=== PATIENT | female | born 1950 | race Caucasian/White ===

== ENCOUNTER 2022-01-18 18:45 | Inpatient (IN) | payer BC ==
[~2022-01-18] VITALS: Ht 170.2 cm; Wt 79.4 kg
--- NOTE | 2022-01-18 18:56 | NUR ---
PT IS IN ROOM #2A. DR MARKS EVALUATED THE PT.
[2022-01-18] MEDS ORDERED: DIGO125T PO (19:07)
[2022-01-18] MEDS ORDERED: INHALER (19:07)
[2022-01-18] MEDS ORDERED: CARV20CP PO (19:07)
--- NOTE | 2022-01-18 19:26 | NUR ---
Pt out of ER for CT.
[2022-01-18] MEDS ORDERED: IV NORMAL SALINE 1000 ML BAG IV ONE (19:30)
--- NOTE | 2022-01-18 19:40 | NUR ---
Pt back to ER from CT.
[2022-01-18 20:24] LABS: HEMATOCRIT 51.7 % (31.2-41.9); MEAN CORPUSCULAR HEMOGLOBIN 32.3 uug (24.7-32.8); MEAN CORPUSCULAR VOLUME 96.2 fL (75.5-95.3); PLATELET COUNT (AUTO) 195 K/uL (179-408)
[2022-01-18 20:34] LABS: CARBON DIOXIDE 25 mmol/L (21-32); CHLORIDE 100 mmol/L (98-107); CREATININE 0.9 mg/dL (0.6-1.3); GLUCOSE 143 mg/dL (74-106); POTASSIUM 4.8 mmol/L (3.5-5.1); UREA NITROGEN, BLOOD 9 mg/dL (7-18)
[2022-01-18 20:42] LABS: ALANINE AMINOTRANSFERASE 30 U/L (14-59); ALKALINE PHOSPHATASE 115 U/L (50-136); ASPARTATE AMINOTRANSFERASE 44 U/L (15-37); BILIRUBIN,DIRECT 0.2 mg/dL (0.0-0.2); BILIRUBIN,TOTAL 1.1 mg/dL (0.2-1.0); TOTAL PROTEIN, SERUM 7.2 g/dL (6.4-8.2)
[2022-01-18 20:48] LABS: THYROID STIMULATING HORMONE 0.746 mIU/mL (0.358-3.740)
[2022-01-18] MEDS ORDERED: HYDROCODONE/APAP 5-325MG TABLET ONE (22:54)
[2022-01-18] MEDS ORDERED: HYDROCODONE/APAP 5-325MG TABLET PO ONE (23:00)
--- NOTE | 2022-01-18 23:02 | NUR ---
Xray at bedside.
[2022-01-18] MEDS ORDERED: MUPIROCIN 2% OINT 22 GM TUBE ONE (23:34)
--- NOTE | 2022-01-18 23:55 | NUR ---
Called [facility] to page Rosalinda Jane NP.
--- NOTE | 2022-01-19 01:14 | NUR ---
Dr. Simpson on panel call with Dr. Snaju Power. Patient accepted for admission to [facility], diagnosis: syncope.
[2022-01-19] MEDS ORDERED: IV NS 1000 ML 1,000 ML IV PRN (02:00)
[2022-01-19] MEDS ORDERED: ACETAMINOPHEN 325 MG TABLET PO PRN (02:00)
[2022-01-19] MEDS ORDERED: ONDANSETRON 4 MG/2 ML VIAL IV PRN (02:00)
[2022-01-19] MEDS ORDERED: MAGNESIUM HYDROXIDE 30 ML LIQUID UDC PO PRN (02:00)
[2022-01-19] MEDS ORDERED: REMEDY ESSENTIAL ZINC PASTE 113 GM TP PRN (02:00)
--- NOTE | 2022-01-19 07:27 | NUR ---
Received report from Alonzo Loaiza pt. will be admitted as telemetry pt. with pending bed assignment.
[2022-01-19] MEDS ORDERED: KETOROLAC TROMETHAMINE 15 MG INJ IVP ONE (07:30)
--- NOTE | 2022-01-19 07:44 | NUR ---
Pt's with c/of pain medicated as ordered. SBP of 182/92, HR of 75. rr 14. Patient restless and slightly agitated with sbp cuff pressure during sbp reading. Addendum: 01/19/22 at [address] Hernandez at bedside report given and orders for hydralzine 10mg IVP X one dose received and implemented.
[2022-01-19] MEDS ORDERED: hydrALAZINE HCL 20 MG/1 ML VIAL IV PRN ×2 (08:00→09:15)
[2022-01-19] MEDS: PANTOPRAZOLE SODIUM 40 MG TABLET.DR PO SCH (09:00)
[2022-01-19] MEDS ORDERED: ALBUTEROL SULFATE 8 GM HFA.AER.AD IH PRN (09:15)
[2022-01-19] MEDS: FLUTICASONE/VILANTEROL 1 EACH BLST.W.DEV INH SCH (09:15)
--- NOTE | 2022-01-19 09:25 | NUR ---
Report given to rachael herrmann all questions answer pt. will be taken up to room 310 via gurney. vitals stable sbp of 148/80 rr 14, saturation 98% on RA. hr of 89.
[2022-01-19] MEDS ORDERED: ALBUTEROL SULFATE 2.5 MG/3 ML NEBU NEB PRN (09:30)
[2022-01-19] MEDS ORDERED: FLUT1BLS6 INH (09:31)
[2022-01-19] MEDS ORDERED: CARVEDILOL 6.25 MG TABLET PO SCH (10:00)
[2022-01-19] MEDS ORDERED: DIGOXIN 125 MCG TABLET PO ONE (10:00)
[2022-01-19 10:56] VITALS: BP 192/88
[2022-01-19] MEDS: CARVEDILOL 6.25 MG TABLET PO SCH ×2 (11:31→17:00)
[2022-01-19 13:00] VITALS: BP 155/75
--- NOTE | 2022-01-19 13:33 | NUR ---
Admitted a 71 yrs old patient from ER S/p fall at home and called 911 transferred to ER via ambulance , patient is alert and oriented x3 very anxiety and nervous refused to be cooperative with nurses.refused most of medication .skin checked done no skin breakdown noted ,patient was lives at home alone refused to answer some of Admission question .patient refused PT and state that she unable to walk at this time.
--- NOTE | 2022-01-19 14:27 | NUR ---
patient has money credit card and check book in her purse she insisted to keep with her.
[2022-01-19 16:13] VITALS: BP 153/67
[2022-01-19] MEDS: DOCUSATE SODIUM 100 MG CAPSULE PO SCH (17:00)
--- NOTE | 2022-01-19 19:30 | NUR ---
Received pt awake, alert and oriented x4. Pt in no acute distress. Iv intact. Pt insisted to have her belongings like cards in her room. Safety and comfort provided. Will continue to monitor.
[2022-01-19 20:06] VITALS: BP 145/66
[2022-01-19] MEDS: HYDROCODONE/APAP 5-325MG TABLET PO PRN (21:08)
--- NOTE | 2022-01-19 22:08 | NUR ---
At 2108H pt was given Universal 5-325mg 1 tablet prn for pain. Pt tolerated it well. After an hour pt stated she felt better. Will continue to monitor.
[2022-01-19] MEDS: IV NS 1000 ML 1,000 ML IV PRN (22:39)
[2022-01-20] VITALS (7 sets, daily range): BP systolic 123–171; BP diastolic 50–89
[2022-01-20] MEDS: PANTOPRAZOLE SODIUM 40 MG TABLET.DR PO SCH (06:11)
--- NOTE | 2022-01-20 06:25 | NUR ---
Pt slept intermittently. Pt in no acute distress. Iv intact.. Prescribed medication given and pt tolerated it well.Pt vital signs within normal limit. Pt afebrile.Pt wants to talk to family independence case manager. Pt wants to go home withsupplies that she will need. Safety and comfort provided. All needs are met. Will endorse to incoming nurse for continuity of care.
[2022-01-20 06:47] LABS: HEMATOCRIT 46.2 % (31.2-41.9); MEAN CORPUSCULAR HEMOGLOBIN 32.6 uug (24.7-32.8); MEAN CORPUSCULAR VOLUME 96.5 fL (75.5-95.3); PLATELET COUNT (AUTO) 163 K/uL (179-408)
--- NOTE | 2022-01-20 07:00 | NUR ---
Received pt. AAOx4. vitals stable on 2L NC with saturation of 98%. Cardiac-barron on controlled A-fib rate in the low 100's. Iv line patent. Will continue to monitor.
[2022-01-20 07:03] LABS: BILIRUBIN,TOTAL 1.4 mg/dL (0.2-1.0); CREATININE 0.9 mg/dL (0.6-1.3); MAGNESIUM 2.1 mg/dL (1.8-2.4); PHOSPHOROUS 3.2 mg/dL (2.5-4.9); POTASSIUM 4.3 mmol/L (3.5-5.1); TOTAL PROTEIN, SERUM 6.2 g/dL (6.4-8.2)
[2022-01-20 07:33] LABS: DIGOXIN 0.4 ng/mL (0.9-2.0)
[2022-01-20] MEDS: IV NS 1000 ML 1,000 ML IV PRN (07:55)
[2022-01-20] MEDS ORDERED: CARVEDILOL 6.25 MG TABLET PO SCH (08:00)
[2022-01-20] MEDS ORDERED: Medication Not On Formulary EA (Carvedilol Phosphate (Coreg Cr) 1 CAP) PO SCH (09:00)
[2022-01-20] MEDS: FLUTICASONE/VILANTEROL 1 EACH BLST.W.DEV INH SCH (09:54)
[2022-01-20] MEDS: DIGOXIN 125 MCG TABLET PO SCH (09:55)
[2022-01-20] MEDS: DOCUSATE SODIUM 100 MG CAPSULE PO SCH ×2 (09:55→17:22)
[2022-01-20] MEDS: CARVEDILOL 12.5 MG TABLET PO SCH ×2 (09:55→17:22)
[2022-01-20] MEDS: NICOTINE 21 MG/24HR PATCH TD SCH (09:55)
[2022-01-20] MEDS: MIRALAX 17 GM POWD.PACK PO SCH (09:55)
--- NOTE | 2022-01-20 10:22 | NUR ---
Social Work Clinical Note: Social Service consult requested for pt. 's request for life alert. Pt. is a 71-year-old female who was admitted to the medical floor on 01/19/2022 due to syncope. Upon social service consult, pt. is alert and oriented x4. Pt. presents with an anxious mood and congruent affect. Pt. appeared to have tremor like movements. Pt. presented unkempt and provided appropriate eye contact. SW explored pt.s living situation. Pt. stated she lives alone at [address] [place] [address]. SW explored pt.s social support. Pt. stated she does not have any family or friends. Pt. stated she hires people to take out her trash and complete household activities. SW explored pt's independence with pt.s ADLs. Pt. stated she was able to walk prior to admission and shower independently. Pt. stated she is no longer able to walk to use the restroom independently. SW offered caregiving resources and life alert resources and pt. accepted. Pt. stated that upon discharge she wanted to return home to [address] [place] [address] and live alone. Pt. is unable to take care of herself at this time. JOAO filed an APS report and placed it in pt.'s chart. SW will remain available as needed.
[2022-01-20] MEDS ORDERED: IPRATROPIUM BROMIDE 12.9 GM INHALER INH SCH (12:00)
[2022-01-20] MEDS: HYDROCODONE/APAP 5-325MG TABLET PO PRN (13:19)
[2022-01-20] MEDS: IPRATROPIUM BROMIDE 0.5 MG/2.5 ML NEBU NEB SCH ×2 (13:39→21:32)
--- NOTE | 2022-01-20 18:33 | NUR ---
took over care, no distress noted, no syncopal episode, no dizziness noted, all needs attended and met, call light within reach
--- NOTE | 2022-01-20 19:30 | NUR ---
Received pt awake, alert and orientedx4.. Pt in no acute distress.Pt on 1L nasal cannula. Iv intact. Safety and comfort provided. Will continue to monitor.
[2022-01-21 00:22] VITALS: BP 125/61
[2022-01-21] MEDS: IPRATROPIUM BROMIDE 0.5 MG/2.5 ML NEBU NEB SCH ×3 (01:30→14:10)
[2022-01-21 04:31] VITALS: BP 137/58
--- NOTE | 2022-01-21 06:07 | NUR ---
Pt in no acute distress. Iv intact. Pt on controlled Afib . Prescribed medication given and pt tolerated it well. Iv intact. Safety and comfort provided. All needs are met. Will endorse to incoming nurse for continuity of care.
[2022-01-21] MEDS: PANTOPRAZOLE SODIUM 40 MG TABLET.DR PO SCH (06:25)
[2022-01-21] MEDS: CARVEDILOL 12.5 MG TABLET PO SCH (08:00)
[2022-01-21] MEDS: NICOTINE 21 MG/24HR PATCH TD SCH (09:22)
[2022-01-21] MEDS: MIRALAX 17 GM POWD.PACK PO SCH (09:22)
[2022-01-21] MEDS: DIGOXIN 125 MCG TABLET PO SCH (09:23)
[2022-01-21] MEDS: DOCUSATE SODIUM 100 MG CAPSULE PO SCH (09:23)
[2022-01-21] MEDS: FLUTICASONE/VILANTEROL 1 EACH BLST.W.DEV INH SCH (09:23)
[2022-01-21 12:02] VITALS: BP 137/57
[2022-01-21 15:40] VITALS: BP 174/80
--- NOTE | 2022-01-21 16:30 | NUR ---
Patient discharged from unit. IV site removed. ID badge removed. Discharge education provided for patient. Patient to have home health. Home health to contact patient when patient arrives home.
== END 2022-01-21 16:30 | disposition home health service (06) | DRG 897 ==
LOC: ER 18:46 → TRANSITION 01-19 07:32 → TELE3 01-19 09:19
PROVIDERS: ADMIT Internal Medicine; ATTEND Nurse Practitioner Acute Care
DX: F10.129 Alcohol abuse with intoxication, unspecified (principal); I48.20 Chronic atrial fibrillation, unspecified; M62.82 Rhabdomyolysis; E86.0 Dehydration; I16.0 Hypertensive urgency; Y90.2 Blood alcohol level of 40-59 mg/100 ml; G25.0 Essential tremor; F17.210 Nicotine dependence, cigarettes, uncomplicated; I10 Essential (primary) hypertension; I25.10 Atherosclerotic heart disease of native coronary artery without angina pectoris; J44.9 Chronic obstructive pulmonary disease, unspecified; Z20.822 Contact with and (suspected) exposure to COVID-19; Z87.01 Personal history of pneumonia (recurrent); Z88.2 Allergy status to sulfonamides; W19.XXXA Unspecified fall, initial encounter; Y93.9 Activity, unspecified; Y92.009 Unspecified place in unspecified non-institutional (private) residence as the place of occurrence of the external cause; I65.22 Occlusion and stenosis of left carotid artery; S00.03XA Contusion of scalp, initial encounter; Z71.6 Tobacco abuse counseling; J31.0 Chronic rhinitis
CPT/HCPCS: 36415; 70450; 71045; 72125; 73660; 83735; 84100; 84443; 84484; 85025; 85730; 93005; 93307; 93880; 94640; 94664; 97161; A4663; G0378; G0480; J0360; J1885; J3590; J7040